=== PATIENT | male | born 1960 | race Caucasian/White ===

== ENCOUNTER 2017-11-30 21:00 | Inpatient (IN) | payer MEDICAID ==
[~2017-11-30] VITALS: Ht 180.3 cm; Wt 104.1 kg
[2017-11-30] MEDS ORDERED: NEURONTIN 400400 MG (21:40)
[2017-11-30] MEDS ORDERED: ZOCOR40 MG PO (21:40)
[2017-11-30] MEDS ORDERED: GLYBURIDE5 M1 (21:40)
[2017-11-30] MEDS ORDERED: GLUCOPHAGE500 MG PO (21:41)
[2017-11-30] MEDS ORDERED: FERROUS SULFAT325 MG PO (21:41)
[2017-11-30] MEDS ORDERED: PROTONIX40 MG (21:41)
[2017-11-30] MEDS ORDERED: PLAVIX75 MG PO (21:41)
[2017-11-30] MEDS ORDERED: BYETTA (21:41)
[2017-11-30] MEDS ORDERED: PENTOXIFYLLINE400 MG PO (21:42)
[2017-11-30] MEDS ORDERED: VOLTAREN75 MG PO (21:42)
[2017-11-30] MEDS ORDERED: VERAPAMIL HCL40 MG (21:42)
[2017-11-30 22:05] LABS: BASOPHILS 0.2 % (0-2); EOSINOPHILS 1.3 % (0-7); HEMATOCRIT 28.6 % (42.0-54.0); HEMOGLOBIN 10.1 g/dL (13.5-17.5); LYMPHOCYTES 26.8 % (15-50); MCHC 35.3 g/dL (31.0-37.0); MCV 90.5 fL (80.0-100.0); MEAN PLATELET VOLUME 9.2 fL (7.4-10.4); MONOCYTES 8.6 % (2-11); NEUTROPHILS 63.1 % (40-80); PLATELET COUNT 53 10x3/uL (130-400); RBC 3.16 10x6/uL (4.20-6.10); RDW 13.9 % (11.5-14.5); WBC 4.8 10x3/uL (4.8-10.8)
[2017-11-30 22:23] LABS: ALBUMIN 3.9 g/dL (3.4-5.0); ANION GAP 14.5 mmol/L (8-16); BILIRUBIN - TOTAL 0.64 mg/dL (0.2-1.3); CALCIUM 8.7 mg/dL (8.5-10.1); CARBON DIOXIDE 25.9 mmol/L (21.0-32.0); CREATININE - SERUM 1.6 mg/dL (0.6-1.3); POTASSIUM - SERUM 4.4 mmol/L (3.5-5.1); PROTEIN - SERUM 7.3 g/dL (6.4-8.2)
[2017-11-30 22:25] LABS: APPEARANCE CLEAR (CLEAR); BILIRUBIN NEGATIVE (NEGATIVE); COLOR YELLOW (YELLOW); GLUCOSE NEGATIVE (NEGATIVE); KETONE NEGATIVE (NEGATIVE); NITRITE NEGATIVE (NEGATIVE); PROTEIN NEGATIVE (NEGATIVE); UROBILINOGEN NORMAL (NORMAL)
[2017-12-01 03:20] VITALS: BP 158/74; Ht 180.3 cm; Wt 104.1 kg
[2017-12-01 04:00] VITALS: BP 158/74
[2017-12-01 08:05] VITALS: BP 108/57
[2017-12-01 16:48] VITALS: BP 131/72
[2017-12-01 20:00] VITALS: BP 126/60
[2017-12-02] VITALS: BP 129/66
[2017-12-02 04:00] VITALS: BP 135/68
[2017-12-02 05:16] LABS: BASOPHILS 0.3 % (0-2); EOSINOPHILS 1.3 % (0-7); HEMOGLOBIN 8.8 g/dL (13.5-17.5); LYMPHOCYTES 38.3 % (15-50); MCHC 35.2 g/dL (31.0-37.0); MCV 90.9 fL (80.0-100.0); MEAN PLATELET VOLUME 9.8 fL (7.4-10.4); MONOCYTES 10.7 % (2-11); NEUTROPHILS 49.4 % (40-80); RBC 2.75 10x6/uL (4.20-6.10); RDW 13.3 % (11.5-14.5)
[2017-12-02 05:27] LABS: ANION GAP 18.2 mmol/L (8-16); CALCIUM 8.2 mg/dL (8.5-10.1); CARBON DIOXIDE 21.7 mmol/L (21.0-32.0); POTASSIUM - SERUM 3.9 mmol/L (3.5-5.1)
[2017-12-02 05:35] LABS: PLATELET COUNT 46 10x3/uL (130-400)
[2017-12-02 05:37] LABS: CREATININE - SERUM 1.1 mg/dL (0.6-1.3)
[2017-12-02 08:28] VITALS: BP 129/63
[2017-12-02 16:29] VITALS: BP 113/64
[2017-12-02 21:07] VITALS: BP 130/66
[2017-12-03 05:09] VITALS: BP 124/62
[2017-12-03 08:29] VITALS: BP 108/67
[2017-12-03 12:04] VITALS: BP 111/63
== END 2017-12-03 15:14 | disposition home or self-care (01) | DRG 390 ==
LOC: D.ER 21:00 → D.MS 12-01 01:47
PROVIDERS: Emergency Medicine
DX: K56.51 Intestinal adhesions [bands], with partial obstruction (principal); E11.9 Type 2 diabetes mellitus without complications; Z87.891 Personal history of nicotine dependence

== ENCOUNTER 2018-01-30 07:20 | Inpatient (IN) | payer MEDICAID ==
[2018-01-29 10:48] LABS: HEMATOCRIT 32.2 % (42.0-54.0); HEMOGLOBIN 11.1 g/dL (13.5-17.5); MCH 31.2 pg (26.0-34.0); MCHC 34.5 g/dL (31.0-37.0); MCV 90.4 fL (80.0-100.0); MEAN PLATELET VOLUME 8.8 fL (7.4-10.4); RBC 3.56 10x6/uL (4.20-6.10); RDW 12.9 % (11.5-14.5); WBC 2.8 10x3/uL (4.8-10.8)
[2018-01-29 11:02] LABS: ANION GAP 13.4 mmol/L (8-16); CALCIUM 8.9 mg/dL (8.5-10.1); CREATININE - SERUM 1.5 mg/dL (0.6-1.3); POTASSIUM - SERUM 4.4 mmol/L (3.5-5.1)
[2018-01-29 11:05] LABS: PLATELET COUNT 43 10x3/uL (130-400)
[2018-01-29 11:24] LABS: PLATELET ESTIMATE DECREASED
[2018-01-30] VITALS (9 sets, daily range): BP systolic 113–149; BP diastolic 66–91; BMI 32.0; BMI 34.0
[~2018-01-30] VITALS: Ht 180.3 cm; Wt 106.1 kg
--- NOTE | ~2018-01-30 | MORECARE ---
CASE MANAGEMENT DISCHARGE SUMMARY PATIENT: WENDI IRELAND UNIT: [id number] ADM DATE: 01/30/18 AGE: 57 : 62 SEX: M ROOM/BED: D.2205 AUTHOR: TACOS SALMERON PHYSICIAN: REFERRING PHYSICIAN: BHARTI OLVERA MD DATE OF SERVICE: 02/03/18 Discharge Plan Patient Name: WENDI IRELAND Facility: [facility]:[place] : 1960 Planned Disposition: Home Anticipated Discharge Date: 02/03/18 Discharge Date: Expected LOS: 4 Initial Reviewer: [email or web address] Initial Review Date: 02/03/2018 Generated: 02/03/18 5:25 pm Comments DCP- Discharge Planning Updated by [email or web address]: Carmen Na on 02/03/18 3:[address] Patient Name: WENDI IRELAND Admission Status: Elective Accout number: [id number] Admission Date: 01-30-2018 : 1960 Admission Diagnosis:POSTPROC HEMOR OF A DGSTV SYS ORG FOLLOWING OTHER PROCE Attending: BHARTI OLVERA Current LOS: 4 Anticipated DC Date: 02-03-2018 Planned Disposition: Home [facility] Discharge Planning Comments: CM met with patient about dc planning/needs. Plans to discharge to home today with Ruddy. No needs identified. CM will follow and assist as needed with dc planning/needs. [employer] Customer Service: Carmen Ireland DCPIA - Discharge Planning Initial Assessment Updated by [email or web address]: Carmen Na on 02/03/18 4:23 pm * Is the patient Alert and Oriented? Yes * PCP [facility] * [facility] * Preadmission Environment Home with Family * ADLs Independent * Equipment None * List name and contact numbers for known caregivers / representatives who currently or will assist patient after discharge: RUDDY PENNY, * Verbal permission to speak to the caregivers and representatives has been obtained from the patient. Yes * Community resources currently utilized None * Additional services required to return to the preadmission environment? No * Can the patient safely return to the preadmission environment? Yes * Has this patient been hospitalized within the prior 30 days at any hospital? No Patient Name: WENDI IRELAND Page [id number] at 1625 All edits/amendments must be made on the electronic document DICTATION DATE: 02/03/181623 IN FILE OPERATOR: JANESSA 02/03/181623 RPT#: [id number] DC DATE: STATUS: ADM IN [facility] [address] [place] [address] END OF REPORT
--- NOTE | ~2018-01-30 | DS ---
PATIENT:WENDI IRELAND :62 MEDICAL RECORD: [id number] DISCHARGE SUMMARY ADMISSION DATE: 01/30/18 DISCHARGE DATE: 02/03/18 PRINCIPAL DIAGNOSES: 1. History of partial small-bowel obstruction. 2. Extensive intraabdominal adhesions. 3. Hepatomegaly. 4. Redundant mesh from a prior hernia repair. PROCEDURE: Laparoscopic adhesiolysis with conversion to open procedure, core liver biopsies, incidental appendectomy, abdominal excisional debridement. HOSPITAL COURSE: The patient underwent the above operative procedure. Postoperatively, his bowel function returned. His diet was advanced. He is being dismissed home on Gila as well as Colace. We are going to change his dressing and remove his drains prior to dismissal. I will see him in my office in 2 to 3 weeks. TRANSINT:[id number] Voice Confirmation ID: [id number] DOCUMENT ID: [id number] BHARTI OLVERA MD at 1653 CC: [id number] DICTATION DATE: 02/03/18 1449 TRAINING INSTRUCTOR: 02/04/18 0510 DIS IN 02/03/18 [facility] [address] [place] [address]
--- NOTE | ~2018-01-30 | OP ---
PATIENT NAME: WENDI IRELAND MEDICAL RECORD: [id number] :62 LOCATION:[facility] D.2311 ADMISSION DATE:01/30/18 SURGEON: BHARTI OLVERA MD DATE OF OPERATION: 01/30/2018 PREOPERATIVE DIAGNOSES: 1. History of a small-bowel obstruction secondary to adhesions. 2. Pancytopenia. POSTOPERATIVE DIAGNOSES: 1. History of a small-bowel obstruction secondary to adhesions. 2. Pancytopenia. 3. Stigmata of portal hypertension including parasitized blood vessels between the omentum and the abdominal wall. 4. Hepatomegaly with nodularity of the liver. 5. Coagulopathy. 6. Extensive intraabdominal adhesions. 7. Redundant hernia mesh. PROCEDURE: 1. Laparoscopic adhesiolysis with conversion to exploratory laparotomy with adhesiolysis. The time spent performing the adhesiolysis was 75 minutes. 2. A 14-gauge core needle liver biopsies. 3. Excisional debridement of abdominal wall. This included only redundant mesh. This was a sharp debridement. The dimensions of the mesh that were removed was 4.2 x 2.8 cm. 4. Incidental appendectomy. SURGEON: Bharti Olvera MD TERRITORY SALES REPRESENTATIVE: None. ESTIMATED BLOOD LOSS: 750 cc. ANESTHESIA: General. DRAINS: Times 2 (19-Slovenian round fully fluted drains). The risks, possible complications and alternatives to procedure were explained to the patient. He elects to proceed. OPERATIVE FINDINGS: The patient had extensive intraabdominal adhesions. After about 25 minutes of the laparoscopic adhesiolysis, I converted to exploratory laparotomy due to bleeding as well as a failure to progress. I am glad that I did this because the adhesions were extensive and the patient had significant bleeding from mainly mesenteric vessels, which were engorged secondary to portal hypertension. The patient was conveyed to the operating room electively on 01/30/2018. General anesthesia was induced by the anesthesia staff. The abdomen was sterilely prepped and draped. A small skin ester was accomplished in the left upper quadrant. A Veress needle was inserted through the skin ester into the peritoneal cavity. A 5-mm trocar was inserted in the left upper quadrant. Extensive intraabdominal adhesions were identified with the laparoscopic camera. Two 5-mm trocars were inserted in the left side of the abdomen. Another two OPERATIVE REPORT [id number] WENDI IRELAND 5-mm trocars were inserted in the right side of the abdomen. During insertion of the Veress needle and the trocars, there was no apparent injury to the bowels, any intraperitoneal or retroperitoneal structures. There were numerous adhesions and there was plenty of opportunity for a bowel obstructions to occur. The anterior portion of the triangular ligament had been incised and this might have been an area where a bowel obstruction could have occurred as well. I began a sharp adhesiolysis utilizing the endoscopic patti. There were parasitized veins across the adhesions and these were cauterized and divided with the Harmonic scalpel. Due to a failure to progress and more bleeding than was expected, I elected to convert to a laparotomy. The trocars were removed. The midline was incised. The peritoneal cavity was entered sharply. A sharp adhesiolysis was undertaken. This was an extensive adhesiolysis. There were 4 seromyotomies, but no full thickness enterotomies. These seromyotomies were reinforced with interrupted horizontal mattress 3-0 Vicryls. The patient had given a history of fatty liver disease and obviously had stigmata of portal hypertension and did have hepatomegaly with nodularity. For these reasons, a liver biopsy was indicated. Utilizing a 14-gauge core needle liver biopsy device, cores were obtained at the acute margin of the liver. The biopsy sites were made hemostatic with electrocautery. I ran the small bowel from the ligament of Treitz to the ileocecal valve. I then ran it back again and then a third time. I noted no full thickness enterotomies. All the adhesions had been lysed. Some bleeding from the omentum was controlled with the Super Jaw EnSeal. In order to avoid diagnostic confusion in the future, I elected to perform an appendectomy. This is because the patient likely will be adhesiogenic again in the future and I wanted to eliminate a source of confusion should the patient have a persistence or recurrence of abdominal pain. A window was created in mesoappendix. I stapled across the tip of the cecum within a SIRIA-75 stapler. The mesoappendix was taken down with the Super Jaw EnSeal. I ran the small bowel once again. There appeared to have been two anastomoses within the small bowel that were well healed and were from the distant past. There was some redundant mesh on the left side of the subfascial compartment. This mesh was excised with a pair of Pedersen scissors. I aped the omentum off over the small bowel and ensured the small bowel was not twisted on its mesentery. I brought out two 19-Slovenian fully fluted drains, one through the left lower quadrant incision, one through a right lower quadrant incision. These were both trocar incisions. The drains were sutured to the skin with 2-0 nylons. The midline fascia was approximated with a running horizontal mattress looped #1 PDS. I then overran the fascial closure with a #1 Vicryl. The subdermis in the midline was approximated with interrupted 3-0 Vicryls. The skin was closed at the remaining trocar sites as well as within the midline utilizing metallic clips. OPERATIVE REPORT [id number] WENDI IRELAND A sterile dressing was applied. The patient was then extubated and conveyed to post-anesthesia care unit where he was in stable condition. TRANSINT:[id number] Voice Confirmation ID: [id number] DOCUMENT ID: [id number] BHARTI OLVERA MD at 1403 CC: [id number] DICTATION DATE: 01/30/182130 SEGMENT BLOCK LAYER: 01/30/182220 ADM IN [facility] [address] [place] [id number]
--- NOTE | ~2018-01-30 | MORECARE ---
CASE MANAGEMENT DISCHARGE SUMMARY PATIENT: WENDI IRELAND UNIT: [id number] ADM DATE: 01/30/18 AGE: 57 : 62 SEX: M ROOM/BED: D.2205 AUTHOR: TACOS SALMERON PHYSICIAN: REFERRING PHYSICIAN: BHARTI OLVERA MD DATE OF SERVICE: 02/06/18 Discharge Plan Patient Name: WENDI IRELAND Facility: [facility]:[place] : 1960 Planned Disposition: Home Anticipated Discharge Date: 02/03/18 Discharge Date: 02/03/2018 Expected LOS: 4 Initial Reviewer: [email or web address] Initial Review Date: 02/03/2018 Generated: 02/06/18 9:58 am Comments DCP- Discharge Planning Updated by [email or web address]: Carmenjennifer Ireland on 02/03/18 3:[address] Patient Name: WENDI IRELAND Admission Status: Elective Accout number: [id number] Admission Date: 01-30-2018 : 1960 Admission Diagnosis:POSTPROC HEMOR OF A DGSTV SYS ORG FOLLOWING OTHER PROCE Attending: BHARTI OLVERA Current LOS: 4 Anticipated DC Date: 02-03-2018 Planned Disposition: Home [facility] Discharge Planning Comments: CM met with patient about dc planning/needs. Plans to discharge to home today with Ruddy. No needs identified. CM will follow and assist as needed with dc planning/needs. Vp Home Health: Carmen Ireland DCPIA - Discharge Planning Initial Assessment Updated by [email or web address]: Carmen Na on 02/03/18 4:23 pm * Is the patient Alert and Oriented? Yes * PCP [facility] * [facility] * Preadmission Environment Home with Family * ADLs Independent * Equipment None * List name and contact numbers for known caregivers / representatives who currently or will assist patient after discharge: RUDDY PENNY, * Verbal permission to speak to the caregivers and representatives has been obtained from the patient. Yes * Community resources currently utilized None * Additional services required to return to the preadmission environment? No * Can the patient safely return to the preadmission environment? Yes * Has this patient been hospitalized within the prior 30 days at any hospital? No Last DP export: 02/03/18 3:25 Patient Name: WENDI IRELAND Page 38005 at 0858 All edits/amendments must be made on the electronic document DICTATION DATE: 02/06/18856 REMOTE SENSING PROGRAM MANAGER: JANESSA 02/06/18856 RPT#: [id number] DC DATE:02/03/18 STATUS: DIS IN [facility] [address] [place] [address] END OF REPORT
[~2018-01-30 07:20] MED LIST: BYETTA; FERROUS SULFAT325 MG PO; GLUCOPHAGE500 MG PO; GLYBURIDE5 M1; HYDROCHLOROTH12.5 M1 PO; NEURONTIN 400400 MG; PENTOXIFYLLINE400 MG PO; PLAVIX75 MG PO; PROTONIX40 MG; VERAPAMIL HCL40 MG; VOLTAREN75 MG PO; ZOCOR40 MG PO
[2018-01-30 08:47] LABS: HEMATOCRIT 30.8 % (42.0-54.0); HEMOGLOBIN 10.7 g/dL (13.5-17.5); MCH 31.3 pg (26.0-34.0); MCHC 34.7 g/dL (31.0-37.0); MCV 90.1 fL (80.0-100.0); MEAN PLATELET VOLUME 9.5 fL (7.4-10.4); RBC 3.42 10x6/uL (4.20-6.10); RDW 12.9 % (11.5-14.5); WBC 2.8 10x3/uL (4.8-10.8)
[2018-01-30 09:07] LABS: PLATELET COUNT 43 10x3/uL (130-400)
[2018-01-30 09:10] LABS: ALBUMIN 3.7 g/dL (3.4-5.0); ANION GAP 14.5 mmol/L (8-16); BILIRUBIN - TOTAL 0.58 mg/dL (0.2-1.3); CALCIUM 8.8 mg/dL (8.5-10.1); CARBON DIOXIDE 25.8 mmol/L (21.0-32.0); POTASSIUM - SERUM 4.3 mmol/L (3.5-5.1); PROTEIN - SERUM 6.8 g/dL (6.4-8.2)
[2018-01-30 09:12] LABS: APTT 25.8 SECONDS (22.8-39.4); CREATININE - SERUM 1.9 mg/dL (0.6-1.3); INR 1.02 (0.85-1.17)
[2018-01-30 10:22] LABS: ANISOCYTOSIS OCC; LYMPHOCYTES 40 % (15-50); MONOCYTES 3 % (2-11); NEUTROPHILS 57 % (40-80); PLATELET ESTIMATE DECREASED; ROULEAUX OCC
[2018-01-30 13:28] LABS: BASOPHILS 0.4 % (0-2); EOSINOPHILS 1.6 % (0-7); HEMATOCRIT 29.8 % (42.0-54.0); HEMOGLOBIN 10.3 g/dL (13.5-17.5); LYMPHOCYTES 46.1 % (15-50); MCH 30.9 pg (26.0-34.0); MCHC 34.6 g/dL (31.0-37.0); MCV 89.5 fL (80.0-100.0); MEAN PLATELET VOLUME 10.1 fL (7.4-10.4); MONOCYTES 6.6 % (2-11); NEUTROPHILS 45.3 % (40-80); RBC 3.33 10x6/uL (4.20-6.10); RDW 12.9 % (11.5-14.5); WBC 2.4 10x3/uL (4.8-10.8)
[2018-01-30 13:39] LABS: PLATELET COUNT 25 10x3/uL (130-400)
[2018-01-31] VITALS (24 sets, daily range): BP systolic 75–139; BP diastolic 41–79; Ht 180.3 cm; Wt 106.1 kg
[2018-01-31 04:06] LABS: BASOPHILS 0.2 % (0-2); EOSINOPHILS 0 % (0-7); HEMATOCRIT 27.3 % (42.0-54.0); HEMOGLOBIN 9.4 g/dL (13.5-17.5); LYMPHOCYTES 13.3 % (15-50); MCH 30.8 pg (26.0-34.0); MCHC 34.4 g/dL (31.0-37.0); MCV 89.5 fL (80.0-100.0); MEAN PLATELET VOLUME 9.2 fL (7.4-10.4); MONOCYTES 7.5 % (2-11); PLATELET COUNT 80 10x3/uL (130-400); RBC 3.05 10x6/uL (4.20-6.10); RDW 13.5 % (11.5-14.5)
[2018-01-31 04:12] LABS: WBC 4.7 10x3/uL (4.8-10.8)
[2018-01-31 04:28] LABS: ALKALINE PHOSPHATASE 38 U/L (46-116); CALC OSMOLALITY 288 mosm/kg (275-300); CARBON DIOXIDE 25.9 mmol/L (21.0-32.0); CHLORIDE - SERUM 110 mmol/L (98-107); GLUCOSE 137 mg/dL (74-106); PHOSPHOROUS 3.8 mg/dL (2.5-4.9); POTASSIUM - SERUM 4.4 mmol/L (3.5-5.1); PROTEIN - SERUM 5.1 g/dL (6.4-8.2); SODIUM 143 mmol/L (136-145); UREA NITROGEN 19 mg/dL (7-18)
[2018-01-31 04:45] LABS: CREATININE - SERUM 1.2 mg/dL (0.6-1.3)
[2018-01-31 04:46] LABS: ALBUMIN 2.7 g/dL (3.4-5.0); ALT (SGPT) 26 U/L (10-68); CALCIUM 6.5 mg/dL (8.5-10.1); TROPONIN-I < 0.017 ng/mL (0.000-0.060); eGFR NON AFRICAN AMERICAN 66 mL/min (90-120)
[2018-01-31 04:47] LABS: MAGNESIUM - SERUM 0.8 mg/dL (1.8-2.4)
[2018-01-31 12:46] LABS: BASOPHILS 0.3 % (0-2); IMMATURE GRANULOCYTES 0.1 % (0-5); LYMPHOCYTES 20.6 % (15-50); MCH 31.3 pg (26.0-34.0); MCHC 34.5 g/dL (31.0-37.0); MCV 90.6 fL (80.0-100.0); MEAN PLATELET VOLUME 9.6 fL (7.4-10.4); MONOCYTES 8.7 % (2-11); NEUTROPHILS 69.3 % (40-80); RDW 13.8 % (11.5-14.5)
[2018-01-31 13:02] LABS: HEMATOCRIT 33.6 % (42.0-54.0); HEMOGLOBIN 11.6 g/dL (13.5-17.5); PLATELET COUNT 100 10x3/uL (130-400); RBC 3.71 10x6/uL (4.20-6.10); WBC 6.9 10x3/uL (4.8-10.8)
[2018-02-01] VITALS (15 sets, daily range): BP systolic 100–191; BP diastolic 56–77
[2018-02-01 02:42] LABS: BASOPHILS 0.2 % (0-2); EOSINOPHILS 1.4 % (0-7); HEMATOCRIT 31.1 % (42.0-54.0); HEMOGLOBIN 10.5 g/dL (13.5-17.5); IMMATURE GRANULOCYTES 0.2 % (0-5); LYMPHOCYTES 22.6 % (15-50); MCH 30.7 pg (26.0-34.0); MCHC 33.8 g/dL (31.0-37.0); MCV 90.9 fL (80.0-100.0); MEAN PLATELET VOLUME 9.4 fL (7.4-10.4); MONOCYTES 10.2 % (2-11); NEUTROPHILS 65.4 % (40-80); RBC 3.42 10x6/uL (4.20-6.10); RDW 13.6 % (11.5-14.5); WBC 6.6 10x3/uL (4.8-10.8)
[2018-02-01 02:47] LABS: PLATELET COUNT 74 10x3/uL (130-400)
[2018-02-01 02:51] LABS: ANION GAP 10.3 mmol/L (8-16); CALCIUM 8.1 mg/dL (8.5-10.1); CARBON DIOXIDE 27.2 mmol/L (21.0-32.0); CREATININE - SERUM 1.1 mg/dL (0.6-1.3); POTASSIUM - SERUM 4.5 mmol/L (3.5-5.1)
[2018-02-01 12:45] LABS: BASOPHILS 0.2 % (0-2); EOSINOPHILS 1.6 % (0-7); HEMATOCRIT 31.6 % (42.0-54.0); HEMOGLOBIN 10.7 g/dL (13.5-17.5); IMMATURE GRANULOCYTES 0.2 % (0-5); LYMPHOCYTES 22.9 % (15-50); MCHC 33.9 g/dL (31.0-37.0); MCV 91.6 fL (80.0-100.0); MEAN PLATELET VOLUME 9.4 fL (7.4-10.4); MONOCYTES 9.7 % (2-11); NEUTROPHILS 65.4 % (40-80); PLATELET COUNT 61 10x3/uL (130-400); RBC 3.45 10x6/uL (4.20-6.10); RDW 13.6 % (11.5-14.5); WBC 5.8 10x3/uL (4.8-10.8)
[2018-02-02 04:30] LABS: BASOPHILS 0 % (0-2); EOSINOPHILS 2.2 % (0-7); HEMATOCRIT 29.2 % (42.0-54.0); HEMOGLOBIN 10.1 g/dL (13.5-17.5); IMMATURE GRANULOCYTES 0.2 % (0-5); LYMPHOCYTES 17.8 % (15-50); MCH 30.6 pg (26.0-34.0); MCHC 34.6 g/dL (31.0-37.0); MEAN PLATELET VOLUME 9.3 fL (7.4-10.4); MONOCYTES 8.7 % (2-11); NEUTROPHILS 71.1 % (40-80); PLATELET COUNT 66 10x3/uL (130-400); WBC 4.5 10x3/uL (4.8-10.8)
[2018-02-02 04:34] LABS: MCV 88.5 fL (80.0-100.0)
[2018-02-02 05:07] LABS: CALC OSMOLALITY 274 mosm/kg (275-300); CALCIUM 7.9 mg/dL (8.5-10.1); CHLORIDE - SERUM 102 mmol/L (98-107); CREATININE - SERUM 0.9 mg/dL (0.6-1.3); GLUCOSE 143 mg/dL (74-106); POTASSIUM - SERUM 3.7 mmol/L (3.5-5.1); SODIUM 137 mmol/L (136-145); UREA NITROGEN 11 mg/dL (7-18); eGFR NON AFRICAN AMERICAN > 90 mL/min (90-120)
[2018-02-02 06:11] VITALS: BP 91/49
[2018-02-02 10:04] VITALS: BP 117/63
[2018-02-02 16:22] VITALS: BP 118/65
[2018-02-02 20:54] VITALS: BP 132/65
[2018-02-03 05:43] LABS: BASOPHILS 0.2 % (0-2); EOSINOPHILS 3.6 % (0-7); HEMATOCRIT 30.3 % (42.0-54.0); HEMOGLOBIN 10.6 g/dL (13.5-17.5); IMMATURE GRANULOCYTES 0.2 % (0-5); MCH 30.5 pg (26.0-34.0); MCV 87.3 fL (80.0-100.0); MEAN PLATELET VOLUME 9.1 fL (7.4-10.4); PLATELET COUNT 67 10x3/uL (130-400); RBC 3.47 10x6/uL (4.20-6.10); RDW 13.1 % (11.5-14.5); WBC 4.5 10x3/uL (4.8-10.8)
[2018-02-03 05:48] VITALS: BP 123/65
[2018-02-03 06:02] LABS: CALC OSMOLALITY 276 mosm/kg (275-300); CALCIUM 8.3 mg/dL (8.5-10.1); CARBON DIOXIDE 30.8 mmol/L (21.0-32.0); CHLORIDE - SERUM 103 mmol/L (98-107); GLUCOSE 143 mg/dL (74-106); POTASSIUM - SERUM 3.6 mmol/L (3.5-5.1); SODIUM 138 mmol/L (136-145); UREA NITROGEN 10 mg/dL (7-18); eGFR NON AFRICAN AMERICAN 82 mL/min (90-120)
[2018-02-03 08:23] VITALS: BP 108/65
[2018-02-03 12:16] VITALS: BP 114/88
[2018-02-03] MEDS ORDERED: FLAGYL500 MG PO (14:11)
[2018-02-03] MEDS ORDERED: COLACE100 MG PO (14:11)
[2018-02-03] MEDS ORDERED: HYDROCODON-ACE1 EAC7 PO (14:12)
[2018-02-03] MEDS ORDERED: LEVAQUIN750 MG PO (14:13)
[2018-02-03 16:40] VITALS: BP 109/64
== END 2018-02-03 17:26 | disposition home or self-care (01) | DRG 908 ==
LOC: D.SDCHOLD 07:20 → D.ICU 07:20 → D.SDCHOLD 09:15 → EDSTATUS 09:15 → D.PAN 09:15 → D.OPS 09:15 → D.SDCHOLD 10:00 → D.ICU 18:01 → D.MS 02-01 18:44
PROVIDERS: Anesthesiology; Surgery
PROC: 0DJD4ZZ Inspection of Lower Intestinal Tract, Percutaneous Endoscopic Approach (ICD-10-PCS; 2018-01-30)
PROC: 0WBF0ZZ Excision of Abdominal Wall, Open Approach (ICD-10-PCS; 2018-01-30)
PROC: 0DNW0ZZ Release Peritoneum, Open Approach (ICD-10-PCS; 2018-01-30)
PROC: 0FB00ZX Excision of Liver, Open Approach, Diagnostic (ICD-10-PCS; 2018-01-30)
PROC: 0DN80ZZ Release Small Intestine, Open Approach (ICD-10-PCS; principal; 2018-01-30 12:00)
PROC: 0DTJ0ZZ Resection of Appendix, Open Approach (ICD-10-PCS; 2018-01-30 12:00)
DX: K91.841 Postprocedural hemorrhage of a digestive system organ or structure following other procedure (principal); D61.818 Other pancytopenia; K76.6 Portal hypertension; D68.9 Coagulation defect, unspecified; T85.628A Displacement of other specified internal prosthetic devices, implants and grafts, initial encounter; K66.0 Peritoneal adhesions (postprocedural) (postinfection); R16.0 Hepatomegaly, not elsewhere classified; Y83.8 Other surgical procedures as the cause of abnormal reaction of the patient, or of later complication, without mention of misadventure at the time of the procedure

== ENCOUNTER → 2018-02-18 17:52 | Outpatient (CLI) | payer MEDICAID ==
[2018-01-31 09:25] VITALS: BMI 33.2
[~2018-02-18 17:52] MED LIST changes: +COLACE100 MG PO; +FLAGYL500 MG PO; +HYDROCODON-ACE1 EAC7 PO; +LEVAQUIN750 MG PO
== END | disposition home or self-care (01) ==
LOC: D.LABREF 17:52
DX: L76.82 Other postprocedural complications of skin and subcutaneous tissue (principal)